=== PATIENT | male | born 1985 | race Caucasian/White ===

== ENCOUNTER 2020-03-26 19:35 | Emergency (ER) | payer OTHER ==
[2020-03-26 19:51] VITALS: TEMP 98.5
[2020-03-26] MEDS ORDERED: SODIUM CHLORIDE 0.9% 1,000 ML IV STA (20:07)
[2020-03-26] MEDS ORDERED: KETOROLAC 15 MG/ML 1 ML VIAL IVP STA (20:08)
--- NOTE | 2020-03-26 20:11 | ED ---
Chest Pain HPI - General Chief Complaint: Chest Pain Stated Complaint: Chest Pain/High BP Time Seen by Provider: 03/26/20 19:55 Source: patient, RN notes reviewed, old records reviewed Mode of arrival: ambulatory Limitations: no limitations - History of Present Illness Initial Comments: Patient is a male who presents emergency room today with complaints of chest discomfort and dizziness for the past 2-3 days. He reports occasional shortness of breath and felt very fatigued yesterday when he was done with work. Patient reports his had some diarrhea as well for the past 2 days. He denies any history of sick contacts that he knows of. - Related Data Allergies Allergy/AdvReac Type Severity Reaction Status Date / Time No Known Allergies Allergy Verified 03/26/20 19:51 Review of Systems ROS Statement: Those systems with pertinent positive or pertinent negative responses have been documented in the HPI. ROS Other: All systems not noted in ROS Statement are negative. EKG Findings - EKG Comments: EKG Findings:: EKG shows normal sinus rhythm normal EKG. Ventricular rate of 79 bpm. Verbal 156 ms. QS duration is 86 ms. QT QTC 362/4:15 milliseconds. No evidence of ST elevation. Past Medical History Past Medical History: No Reported History History of Any Multi-Drug Resistant Organisms: None Reported Past Surgical History: Orthopedic Surgery Past Psychological History: No Psychological Hx Reported Smoking Status: Current some day smoker Past Alcohol Use History: Occasional Past Drug Use History: None Reported General Exam - General Exam Comments Initial Comments: 34 year old male, no distress. Limitations: no limitations General appearance: alert, in no apparent distress Head exam: Present: atraumatic, normocephalic, normal inspection Eye exam: Present: normal appearance, PERRL, EOMI. Absent: scleral icterus, conjunctival injection, periorbital swelling ENT exam: Present: normal exam, mucous membranes moist Neck exam: Present: normal inspection. Absent: tenderness, meningismus, lymphadenopathy Respiratory exam: Present: normal lung sounds bilaterally. Absent: respiratory distress, wheezes, rales, rhonchi, stridor Cardiovascular Exam: Present: regular rate, normal rhythm, normal heart sounds. Absent: systolic murmur, diastolic murmur, rubs, gallop, clicks GI/Abdominal exam: Present: soft, normal bowel sounds. Absent: distended, tenderness, guarding, rebound, rigid Extremities exam: Present: normal inspection, full ROM, normal capillary refill. Absent: tenderness, pedal edema, joint swelling, calf tenderness Back exam: Present: normal inspection Neurological exam: Present: alert, oriented X3, CN II-XII intact Psychiatric exam: Present: normal affect, normal mood Skin exam: Present: warm, dry, intact, normal color. Absent: rash Course Vital Signs 03/26/20 03/26/20 03/26/20 19:47 20:41 20:49 Temperature 98.5 F Pulse Rate 93 80 Pulse Rate [ 76 Clinical Review Specialist ] Respiratory 20 18 Rate Blood Pressure 152/96 128/92 O2 Sat by Pulse 99 98 Oximetry Chest Pain MDM - MDM 34-year-old male presents emergency department today with 2-3 days of dizziness diarrhea lightheaded. He also complained of some shortness of breath. This time chest x-ray is clear. Lungs are clear to auscultation. Vital signs are stable. EKG was reviewed and normal. Troponin is negative. I discussed the patient's symptoms with diarrhea fatigue and aches most likely viral. He was tested for Spraggs at 17. Discussed his results will be pending. Discussed that concern for cardiac origin for pain at this time as he said a normal EKG and troponin with length of symptoms being to 3 days. Patient has happy with this discussion. I discussed the Patient needs to follow-up with primary care doctor return visit any worsening signs or symptoms. Chest x-ray is clear with no acute processes noted. Disposition Clinical Impression: Atypical chest pain, Fatigue, Diarrhea Disposition: HOME SELF-CARE Condition: Stable Instructions (If sedation given, give patient instructions): Viral Syndrome (ED) Additional Instructions: Your results for the covid 19 test should be available hopefully within the next 5 days. Patient should limit contacts until that time. Monitor for any worsening signs or symptoms and Patient can return to the ER for reevaluation or follow up with primary care physician. Is patient prescribed a controlled substance at d/c from ED?: No Referrals: None,Stated [Primary Care Provider] - 1-2 days Time of Disposition: 21:38
[2020-03-26 20:50] VITALS: RESP 18
[2020-03-26 20:50] LABS: Basophils # (A) 0.1 k/uL (0-0.2); Basophils % (A) 1 %; Eosinophils # (A) 0.1 k/uL (0-0.7); Eosinophils % (A) 2 %; HGB 17.2 gm/dL (13.0-17.5); Lymphocytes # (A) 2.1 k/uL (1.0-4.8); Lymphocytes % (A) 31 %; MCH 28.9 pg (25.0-35.0); MCHC 34.4 g/dL (31.0-37.0); Mean Platelet Volume 6.7; Monocytes # (A) 0.5 k/uL (0-1.0); Monocytes % (A) 7 %; Neutrophils # (A) 4.1 k/uL (1.3-7.7); Neutrophils % (A) 59 %; Platelet Count 237 k/uL (150-450); RBC 5.96 m/uL (4.30-5.90); RDW 13.1 % (11.5-15.5); WBC 6.9 k/uL (3.8-10.6)
--- NOTE | 2020-03-26 20:57 | XR ---
EXAMINATION TYPE: XR chest 1V portable DATE OF EXAM: 03/26/2020 COMPARISON: NONE HISTORY: Chest pain. TECHNIQUE: Single frontal view of the chest is obtained. FINDINGS: There is no focal air space opacity, pleural effusion, or pneumothorax seen. The cardiac silhouette size is within normal limits. The osseous structures are intact. IMPRESSION: No acute process.
[2020-03-26 21:04] LABS: ALT 25 U/L (4-49); AST 27 U/L (17-59); African American GFR (CKD) >90 (>60 ml/min/1.73 sqM); Albumin 4.4 g/dL (3.5-5.0); Alkaline Phosphatase 77 U/L (38-126); Anion Gap 8 mmol/L; Blood Urea Nitrogen 15 mg/dL (9-20); Calcium 9.3 mg/dL (8.4-10.2); Carbon Dioxide 24 mmol/L (22-30); Chloride 107 mmol/L (98-107); Glucose 86 mg/dL (74-99); Magnesium 2.1 mg/dL (1.6-2.3); Non-African American GFR(CKD) >90 (>60 ml/min/1.73 sqM); Potassium 4.1 mmol/L (3.5-5.1); Sodium 139 mmol/L (137-145); Total Bilirubin 0.7 mg/dL (0.2-1.3); Total Protein 7.2 g/dL (6.3-8.2)
[2020-03-26 21:07] LABS: Partial Thromboplastin Time 24.8 sec (22.0-30.0)
[2020-03-26 21:52] VITALS: BP 129/75; PULSE 75
== END 2020-03-26 21:52 | disposition home or self-care (01) ==
LOC: EC 19:35
DX: R07.89 Other chest pain (principal); R19.7 Diarrhea, unspecified; R53.83 Other fatigue; F17.200 Nicotine dependence, unspecified, uncomplicated
CPT/HCPCS: 36415; 71045; 80053; 83735; 84484; 85025; 85610; 85730; 93005; 96360; 99285